=== PATIENT | female | born 1945 | race Caucasian/White ===

== ENCOUNTER 2017-01-14 14:28 | Emergency (ER) | payer BC | END 2017-01-14 15:59 | disposition home or self-care (01) | LOC: ER 14:28 | DX: I10 Essential (primary) hypertension (principal); Z96.653 Presence of artificial knee joint, bilateral; Z79.82 Long term (current) use of aspirin; Z79.899 Other long term (current) drug therapy; Z88.5 Allergy status to narcotic agent | CPT/HCPCS: 36415 ==